=== PATIENT | male | born 1995 | race Caucasian/White ===

== ENCOUNTER → 2016-08-21 | Outpatient (CLI) | payer BC, OTHER | END | disposition home or self-care (01) | LOC: C.RDSM 11:05 | PROVIDERS: ATTEND Family Medicine Sports Medicine | DX: M25.569 Pain in unspecified knee (principal) ==

== ENCOUNTER → 2016-09-21 | Outpatient (CLI) | payer BC, OTHER ==
[2016-09-24 14:27] LABS: CHLAMYDIA TRACH RNA*** NOT DETECTED (NOT DETECTED); GC (NEIS GONORRHOEAE)RNA** NOT DETECTED (NOT DETECTED)
== END | disposition home or self-care (01) ==
LOC: C.LAB1850 13:05
PROVIDERS: ATTEND Family Medicine Sports Medicine
DX: Z72.51 High risk heterosexual behavior (principal); R30.0 Dysuria

== ENCOUNTER → 2016-09-25 | Outpatient (CLI) | payer BC, OTHER ==
--- NOTE | 2016-09-25 14:56 | DIAGNOSTIC IMAGING REPORT ---
MRI OF THE LEFT KNEE WITHOUT CONTRAST CLINICAL HISTORY: Medial left knee pain and joint effusion following injury. COMPARISON STUDY: Left knee radiographs August 21, 2016. TECHNIQUE: Utilizing a 1.5 Cindy magnet and dedicated coil, multiplanar, multiecho imaging of the left knee was performed without intravenous or intraarticular contrast. FINDINGS: Alignment of the left knee is anatomic. Extensor mechanism is intact. There is a moderate-sized left knee joint effusion. No loose bodies are identified. The anterior and posterior cruciate ligaments are intact. The medial collateral ligament and lateral collateral ligament complex are intact. There is no lateral meniscal tear. There is a complex tear of the medial meniscus which involves the posterior root, posterior horn and body of the medial meniscus. The medial meniscus is partially extruded. There is an associated meniscal fragment within the intercondylar notch along the medial aspect of the anterior cruciate ligament. This suggests a bucket-handle tear of the medial meniscus. A portion of the meniscus extends into the meniscal gutter. There is mild edema within the adjacent medial tibial plateau. There is no evidence for fracture. There is no suspicious marrow replacement. Cartilage is intact. Patellofemoral alignment is anatomic. IMPRESSION: 1. Complex bucket handle tear of the medial meniscus with a portion of the meniscus located within the intercondylar notch. Medial meniscus partially extruded and extends into the meniscal gutter. 2. Moderate-sized left knee joint effusion. 3. Intact cruciate and collateral ligaments. Electronically signed by: Bryson Liao M.D. 09/25/2016 2:55 PM Dictated Date/Time: 09/25/2016 2:47 PM
== END | disposition home or self-care (01) ==
LOC: C.MRI 13:29
PROVIDERS: ATTEND Family Medicine Sports Medicine
DX: M25.562 Pain in left knee (principal); M25.462 Effusion, left knee

== ENCOUNTER → 2016-10-05 | Day surgery (SDC) | payer BC, OTHER ==
[2016-10-04 14:16] VITALS: Ht 170.2 cm; Wt 81.8 kg
[~2016-10-05] VITALS: Ht 170.2 cm; Wt 81.8 kg
[~2016-10-05] MED LIST: ATROPINE SULFATE 0.1 MG/ML 5ML SYR IV PRN; CEFAZOLIN 2000 MG/60 ML D5W IV SCH; DEXAMETHASONE SOD INJ 4 MG/ML VIAL ONE; EpHEDrine SULFATE INJ 50 MG/ML AMP IV PRN; FENTANYL CITRATE INJ 50 MCG/1 ML 2 ML VIAL ONE; FLUMAZENIL 0.1 MG/1 ML 10 ML VIAL IV PRN; HYDROCODONE/ACETAMOPHEN 5/325MG TAB PO PRN; HYDROmorphone INJ 1 MG/ML SYR IV PRN; LACTATED RINGER'S 1000ML 1,000 ML IV SCH; LIDOCAINE HCL 2% 2 ML VIAL (20MG/ML) ONE; LIDOCAINE/EPINEPHRINE 1% INJ 50 ML VIAL ONE; MIDAZOLAM HCL 1 MG/ML 2ML VIAL ONE; MoRPHine SULFATE 2 MG/ML CARP IV PRN; MoRPHine SULFATE 4 MG/ML 1 ML CARP\\VIAL IV PRN; NALOXONE HCL 0.4 MG/1 ML VIAL/CARP IV PRN; ONDANSETRON INJ 2 MG/ML 2 ML VIAL IV PRN; ONDANSETRON INJ 2 MG/ML 2 ML VIAL ONE; OXYCODONE/ACETAMINOPHEN 5-325 TAB PO PRN; PATIENT'S ALLERGY INFO NEEDS ENTERED SCH; PROMETHAZINE HCL INJ 12.5 MG in SODIUM CHLORIDE 0.9% 50ML 50 ML IV PRN; PROPOFOL IV EMULSION 10 MG/ML 20 ML VIAL IV ONE; SODIUM CHLORIDE 0.9% 1000ML 1,000 ML IV SCH
--- NOTE | 2016-10-05 09:59 | History & Physical Bridge Note ---
H&P Re-Evaluation Bridge Note: I have examined the patient, reviewed the History & Physical and in the interval since the performance of the History & Physical I have noted the following changes of clinical significance: No changes noted
--- NOTE | 2016-10-05 11:23 | Discharge Instructions-SurgCtr ---
Discharge Instructions Date of Service Oct 05, 2016. Visit Reason for Visit: Left Knee Medial Meniscus Tear Discharge Discharge Diagnosis / Problem: left knee medial meniscal tear Discharge Goals Goal(s): Decrease discomfort, Improve function, Increase independence Activity Recommendations Activity Limitations: per Instructions/Follow-up section Weightbearing Status: Left weightbearing (as tolerated crutches) Anesthesia . Post Anesthesia Instructions: If you have had General Anesthesia or IV Sedation: * Do not drive today. * Resume driving when surgeon permits. * Do not make important decisions or sign legal documents today. * Call surgeon for: 1. Temperature elevations greater than 101 degrees F. 2. Uncontrollable pain. 3. Excessive bleeding. 4. Persistent nausea and vomiting. 5. Medication intolerance (nausea, vomiting or rash). * For nausea and vomiting use only clear liquids such as: tea, soda, bouillon until nausea subsides, then gradually increase diet as tolerated. * If you have any concerns or questions, call your surgeon's office. If physician is unavailable and it is an emergency, call 911 or go to the nearest emergency room. . Instructions / Follow-Up Instructions / Follow-Up The following instructions are a useful guide to questions you may have after your Anterior Cruciate Ligament Reconstruction surgery. If you have any questions contact the office at . ACTIVITY RECOMMENDATIONS: * Heavy manual labor is not permitted until 4-6 months after surgery. * Sports are not permitted until 6-9 months after surgery. * Return to activity is individualized. * DRIVING: Driving is not permitted until 3-4 weeks after surgery at a minimum. Please ask your doctor when it is safe to resume driving. If you have an automatic vehicle and your left leg has been operated on, then you may begin driving as soon as you are comfortable and can drive safely. * BATHING: You may shower or sponge-bathe immediately after surgery. The dressing will need to be covered with a plastic bag or plastic wrap until the dressing is changed on the fourth or fifth day after surgery. Once the dressing has been changed on the fourth or fifth day after surgery, you may shower and get the incision wet. * Wash with regular soap and water. * Do not bathe (submerge the incision), soak, swim or use a hot tub until the incision is completely healed over with normal skin and the doctor has given the OK to proceed. * There is no need to apply any ointments, powders or salves to your incision. * Do not apply alcohol or hydrogen peroxide directly to the incision. Diluted peroxide (50:50 mixture with sterile saline) may be used to clean dried blood from around the incision area. WORK/SCHOOL: * You may return to sedentary work or school when you are feeling comfortable. This is usually 3-7 days after surgery. * Expect increased discomfort with increased activity. Continue to elevate and ice the leg as much as possible. DIET: * Resume previous diet. MEDICATIONS: * You will have a prescription for pain medication and an anti-inflammatory medication after surgery. Use the pain pills for severe pain and the anti-inflammatory for less severe pain. * Once the pain pills have run out, try to use the anti-inflammatory. If this is not effective then contact the office for assistance. * The pain medication may cause nausea, constipation and sleepiness. You should see how they affect you before driving or similar activity. * The anti-inflammatory may cause stomach upset and bleeding. If this occurs, let your doctor know immediately . * Some patients may need blood clot prevention. This can be done with either a pill or a simple shot. Your doctor will advise you on when to begin these medications and how to take them. * Do not take aspirin or other anti-inflammatory products (i.e. Advil or Aleve ) if taking blood thinner medication. * Take a stool softener like Colace or a stimulant like Senokot to prevent constipation. SPECIAL CARE INSTRUCTIONS: The following instructions are a useful guide to questions you may have after your surgery. If you have any questions contact the office at . ICE: * You have the option of an ice cooler, gel packs or ice bags. * If you have an ice cooler, refer to the instructions for that device. * If you do not have an ice cooler, then you will need to use ice bags or gel packs. * Do not apply ice directly to the skin. * Use a thin dressing or stockinet between the skin and ice bag. * Apply ice for 20-30 minutes and repeat every 2-4 hours. This is especially important for the first 7-10 days after surgery. * Once the pain improves, use ice as needed. * The ice cooler can be used continuously. ELEVATION: * Keep your leg elevated at or above the level of your heart as much as possible. * Expect some increased discomfort and swelling if you are standing for any length of time. * When lying down, avoid placing anything under your knee. Rather, prop your leg up by placing several pillows under your heel or calf. DRESSING: * Your dressing will be changed at your first therapy appointment approximately 4-5 days after surgery. * Band-Aids, tape strips or gauze may be applied. You may then change your dressing daily. * Always wash your hands prior to touching the incision area. * Reapply dressing followed by the Israel wrap or Tubi-bakery decorator stockinet, ice cooling pad and then the brace. * Once the stitches are removed, you may leave the wound open to air or cover with an Israel Bandage or Tubi-bakery decorator stockinet. * If you have been given a white elastic stocking (OSCAR hose), wear as much as possible for the first 1-3 weeks depending on swelling. * Expect some bloody drainage for the first few days after surgery. * Leave the tape strips in place for 5-7 days. * Band-Aids and gauze may be changed daily. CRUTCHES: * You will need to use crutches after surgery. * Until your first doctor's appointment, you must use your crutches at all times when walking and should put no more than 50% of your normal weight on the surgical leg. * After your first doctor's appointment, you may gradually progress to full weight bearing and discontinue crutches as tolerated under the guidance of your therapist. * If you have had a microfracture procedure done, you may be advised to be non- weight bearing for up to 6 weeks. BRACE: * After surgery, you will be placed into a range of motion brace locked with your leg straight. This brace is to be worn at all times when walking (even with the crutches) and sleeping until your first doctors appointment. * The brace may be removed for therapy. * After your first therapy appointment, your therapist will open the brace to allow bending of the knee once your muscles are working better. * Until your first doctor's appointment, you should sleep with your brace locked with your knee fully straight. * If you have chosen to use a functional ACL brace then this brace will be supplied about 2-3 months after your surgery. During that time, you will attend therapy 2- 3 times per week. You will also need to do daily exercises for range of motion and strength as instructed. PROBLEMS/QUESTIONS: * If you have any problems such as severe pain, numbness, tingling or high fevers or if you have any questions, please contact the office at [phone]. * It is not uncommon to have some numbness and tingling after the surgery especially if you have had a nerve block done. This should gradually improve over the first 1- 2 days. If this persists longer or worsens then contact the office. FOLLOW UP VISIT: * If not already scheduled, please call the office at to schedule follow-up appointments for approximately 10 days and one month after surgery followed by monthly appointments thereafter. * Follow-up with her medical management trainer in 4-5 days for dressing change. * Follow up with Dr. Sanders 10-14 days postoperatively for suture removal of her left knee. Diet Recommendations Home Diet: no limitations, resume previous diet Procedures Procedures Performed: Left Knee Arthroscopy, Partial Medial Meniscectomy Pending Studies Studies pending at discharge: no Medical Emergencies . Who to Call and When: Medical Emergencies: If at any time you feel your situation is an emergency, please call 911 immediately. . Non-Emergent Contact Non-Emergency issues call your: Surgeon Call Non-Emergent contact if: temperature is above 101, your pain is not controlled, your pain is concerning you, wound has increased drainage, wound has increased redness, wound has increased pain, you have any medication questions . . "Provider Documentation" section prepared by Melissa Watkins. .
--- NOTE | 2016-10-05 11:26 | [facility] Operative Report ---
Operative Report Operative Date Oct 05, 2016. Pre-Operative Diagnosis Left Knee Partial Medial Tear Post-Operative Diagnosis Same Procedure(s) Performed Left Knee Arthroscopy, Partial Medial Meniscectomy Surgeon Dr. 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 He has mechanical symptoms and pain in his left knee. X-rays are normal. MRI demonstrates a complex appearing medial meniscus tear. He is elected to proceed with operative intervention. He has been apprised of the function of the meniscus. We discussed differences between meniscus repair and meniscus debridement. He does not wish to have a meniscus repair even if it were clinically indicated. He is aware that loss of the meniscus can lead to premature arthritic changes and pain in the knee. Description of Procedure Patient was identified as jones [place]ford. He was positioned supine on the OR table. No tourniquet was utilized. All a lateral post was used for stressing the knee. He identified the operative site as the left knee. I marked with my initials. Preoperative surgical timeout was performed. Appropriate IV antibiotics was given. DVT prophylaxis was not indicated. Lidocaine 1% with epinephrine was was injected in the fat pad and portal sites and knee joint preoperatively. The left lower extremity was prepped and draped in the usual sterile fashion. The examination under anesthesia showed full range of motion small effusion intact cruciate and collateral ligaments. Inferior lateral viewing portal superior lateral outflow portal and inferomedial working portals were established. Diagnostic arthroscopy was performed. The MCL was perforated to improve and of the medial compartment. Chondral surfaces throughout the knee were normal. There was a ruptured bucket handle medial meniscus tear with a fragment located in the intercondylar notch. The tear was more horizontal cleavage posteriorly but was more longitudinal medially. Extended up to the junction of the body and anterior horn. The meniscus was not repairable. It was debrided back to a stable balanced and well contoured rim using basket forceps and motorized shaver. The meniscal roots were intact although the tear did extend posteriorly to the meniscal root. At the body of the meniscal rim width was about 4 mm at its thinnest. The posterior medial and lateral compartment views were normal. The lateral compartment meniscus and popliteus were normal. The patella was normal as were the medial and lateral gutters and the suprapatellar pouch. Trochlea normal. The retropatellar fat pad and ligamentum mucosum were resected to improve visualization. The cruciate ligaments were normal. The portals were closed with 4-0 nylon. A soft sterile dressing was applied. Patient was awakened from anesthesia without difficulty and taken to the recovery room in stable condition. There were no specimens or complications. Counts are correct in the case. Blood loss was minimal. At the conclusion operations both patient's mother informed her my findings. He can be rehabilitated according to the arthroscopic meniscectomy protocol. I attest to the content of the Intraoperative Record and any orders documented therein. Any exceptions are noted below.
--- NOTE | 2016-10-05 11:26 | [facility] Operative Report ---
Operative Report Operative Date Oct 05, 2016. Pre-Operative Diagnosis Left Knee Partial Medial Tear Post-Operative Diagnosis Same Procedure(s) Performed Left Knee Arthroscopy, Partial Medial Meniscectomy Surgeon Dr. Christos Sanders [employer] Quality Control Technician Surgeon(s) Melissa Watkins PA-C Estimated Blood Loss 5 ml Findings Medial meniscal tear Specimens None Drains none Anesthesia General Complication(s) None Disposition Recovery Room / PACU Indications Patient is a 21-year-old male who injured his knee wrestling approximately a month ago. He has had continuous and progressively worsening knee pain. He has some instability and catching with his left knee. X-rays were obtained no evidence of bony abnormality. MRI was obtained and found to have displaced bucket-handle tear of his medial meniscus. Due to these findings surgical intervention was recommended. Risks and complications were discussed. He agreed to proceed with surgery. Informed consent was obtained. Description of Procedure Patient was taken to the operating room and placed under general anesthesia. He was given 2 g of IV Ancef for surgical prophylaxis. Time out was performed. He was prepped and draped in routine sterile fashion. I was present during the entire case, please see Dr. Sanders's operative report for further detail. He was awakened and transferred to the recovery room in stable condition. I attest to the content of the Intraoperative Record and any orders documented therein. Any exceptions are noted below.
--- NOTE | 2016-10-05 13:05 | Anesthesia Progress Nt - [facility] ---
Anesthesia Post Op Note Date & Time Oct 05, 2016 at 13:04 Vital Signs Pain Intensity: 4 Vital Signs Past 12 Hours Date Time Temp Pulse Resp B/P (MAP) Pulse Ox O2 Delivery O2 Flow Rate FiO2 10/05/16 12:15 36.8 56 14 128/81 (97) 100 Room Air T-piece 10/05/16 11:51 36.4 100 Room Air 10/05/16 11:51 62 18 10/05/16 11:51 60 18 100 10/05/16 11:50 155/94 10/05/16 11:49 56 19 10/05/16 11:49 55 19 100 10/05/16 11:45 140/93 10/05/16 11:44 51 19 10/05/16 11:44 51 19 100 10/05/16 11:43 64 15 100 10/05/16 11:43 63 15 10/05/16 11:40 146/82 10/05/16 11:38 57 19 100 10/05/16 11:38 57 19 10/05/16 11:35 144/87 10/05/16 11:33 52 18 100 10/05/16 11:33 52 18 10/05/16 11:32 76 17 10/05/16 11:32 76 17 100 10/05/16 11:30 139/89 10/05/16 11:27 62 20 100 10/05/16 11:27 62 20 10/05/16 11:25 135/85 10/05/16 11:22 64 19 100 10/05/16 11:22 64 19 10/05/16 11:22 36.9 68 16 137/82 100 Mask 6 10/05/16 08:47 36.5 66 66 129/84 (99) 97 Room Air Notes Mental Status: alert / awake / arousable, participated in evaluation Pt Amnestic to Procedure: Yes Nausea / Vomiting: adequately controlled Pain: adequately controlled Airway Patency, RR, SpO2: stable & adequate BP & HR: stable & adequate Hydration State: stable & adequate Anesthetic Complications: no major complications apparent Doing well. No n/v, Pain controlled
[2016-10-05 13:11] VITALS: BP 147/87; PULSE 52; TEMP 36.7; O2SAT 100
== END | disposition home or self-care (01) ==
LOC: X.SURG 08:09
PROVIDERS: ATTEND Physical Medicine & Rehabilitation Sports Medicine
DX: M23.232 Derangement of other medial meniscus due to old tear or injury, left knee (principal)

== ENCOUNTER → 2017-01-25 | Outpatient (CLI) | payer BC, OTHER ==
[~2017-01-25] MED LIST changes: -ATROPINE SULFATE 0.1 MG/ML 5ML SYR IV PRN; -CEFAZOLIN 2000 MG/60 ML D5W IV SCH; -DEXAMETHASONE SOD INJ 4 MG/ML VIAL ONE; -EpHEDrine SULFATE INJ 50 MG/ML AMP IV PRN; -FENTANYL CITRATE INJ 50 MCG/1 ML 2 ML VIAL ONE; -FLUMAZENIL 0.1 MG/1 ML 10 ML VIAL IV PRN; +GADAVIST IV PRN; -HYDROCODONE/ACETAMOPHEN 5/325MG TAB PO PRN; -HYDROmorphone INJ 1 MG/ML SYR IV PRN; -LACTATED RINGER'S 1000ML 1,000 ML IV SCH; -LIDOCAINE HCL 2% 2 ML VIAL (20MG/ML) ONE; -LIDOCAINE/EPINEPHRINE 1% INJ 50 ML VIAL ONE; -MIDAZOLAM HCL 1 MG/ML 2ML VIAL ONE; -MoRPHine SULFATE 2 MG/ML CARP IV PRN; -MoRPHine SULFATE 4 MG/ML 1 ML CARP\\VIAL IV PRN; -NALOXONE HCL 0.4 MG/1 ML VIAL/CARP IV PRN; -ONDANSETRON INJ 2 MG/ML 2 ML VIAL IV PRN; -ONDANSETRON INJ 2 MG/ML 2 ML VIAL ONE; -OXYCODONE/ACETAMINOPHEN 5-325 TAB PO PRN; -PATIENT'S ALLERGY INFO NEEDS ENTERED SCH; -PROMETHAZINE HCL INJ 12.5 MG in SODIUM CHLORIDE 0.9% 50ML 50 ML IV PRN; -PROPOFOL IV EMULSION 10 MG/ML 20 ML VIAL IV ONE; -SODIUM CHLORIDE 0.9% 1000ML 1,000 ML IV SCH
--- NOTE | 2017-01-25 14:30 | DIAGNOSTIC IMAGING REPORT ---
FLUOROSCOPICALLY GUIDED RIGHT SHOULDER ARTHROGRAM PRE-MRI CLINICAL HISTORY: Right shoulder pain COMPARISON STUDY: None FLUOROSCOPY TIME: 12 seconds. NUMBER OF FLUOROSCOPIC IMAGES: 1 FINDINGS: A timeout was performed. The risks of the procedure were explained the patient and informed consent was obtained. The patient was prepped and draped in sterile fashion. The skin was anesthetized 1% lidocaine. Under fluoroscopic guidance, 22-gauge spinal needle was introduced into the joint capsule. A mixture of Optiray 300 and gadolinium was instilled. A fluoroscopic spot image was acquired which document intra-articular location of the contrast. There were no immediate complications. The patient was sent to the MRI suite for further evaluation. IMPRESSION: 1. Successful fluoroscopically guided right shoulder gadolinium arthrogram pre-MRI Electronically signed by: Julian Pinto M.D. 01/25/2017 2:29 PM Dictated Date/Time: 01/25/2017 2:27 PM
--- NOTE | 2017-01-25 15:19 | DIAGNOSTIC IMAGING REPORT ---
MR ARTHROGRAM OF THE RIGHT SHOULDER CLINICAL HISTORY: Right shoulder injury. COMPARISON STUDY: No priors. TECHNIQUE: Following the intra-articular administration of gadolinium contrast, MR arthrogram of the right shoulder was performed utilizing various T1 and T2 weighted sequences in the axial, sagittal, coronal planes. Note that interpretation is suboptimal without plain film correlate. FINDINGS: Rotator cuff: There is mild tendinopathy of the supraspinatus tendon. The supraspinatus and intraspinous tendons are intact. The teres minor and subscapularis tendons are preserved. There is no subacromial or subdeltoid bursal fluid. The acromioclavicular joint is unremarkable. Biceps tendon: The long head of the biceps tendon is normal in signal intensity and located within the bicipital groove. The anchor is maintained. Labrum: There is a SLAP tear of the glenoid labrum. Shoulder joint: The joint space is well distended with intra-articular contrast. The articular cartilage over the glenoid is well maintained. Normal marrow signal intensity is preserved of the visualized osseous structures. Musculature and soft tissues: Anterior soft tissue induration is likely related to the joint injection. No joint body is identified. The musculature of the shoulder is normal in bulk and signal intensity. No atrophy is seen. IMPRESSION: 1. There is a SLAP tear of the glenoid labrum. 2. The rotator cuff is intact. 3. No osseous abnormality is identified. 4. The long head of the biceps tendon is preserved. Electronically signed by: Jonathan Pinto M.D. 01/25/2017 3:18 PM Dictated Date/Time: 01/25/2017 3:06 PM
== END | disposition home or self-care (01) ==
LOC: C.MRI 13:31
PROVIDERS: ATTEND Physical Medicine & Rehabilitation Sports Medicine
DX: S43.421A Sprain of right rotator cuff capsule, initial encounter (principal); X58.XXXA Exposure to other specified factors, initial encounter

== ENCOUNTER → 2017-04-09 | Outpatient (CLI) | payer BC, OTHER | END | disposition home or self-care (01) | LOC: C.RDSM 08:00 | PROVIDERS: ATTEND Family Medicine Sports Medicine | DX: M79.645 Pain in left finger(s) (principal); L03.019 Cellulitis of unspecified finger; Z88.2 Allergy status to sulfonamides; Z88.8 Allergy status to other drugs, medicaments and biological substances ==